=== PATIENT | male | born 1935 | race Caucasian/White ===

== ENCOUNTER 2017-01-09 00:09 | Emergency (ER) | payer MEDICARE, OTHER ==
[2017-01-09 00:47] LABS: BASOPHIL 0.2 % (0-2); HCT 43.9 % (42.0-52.0); HGB 14.9 g/dl (13.2-18.0); LYMPHOCYTE 34.3 % (15-48); MCH 32.7 pg (25.0-31.0); MCHC 33.9 g/dL (32.0-36.0); MCV 96.5 fL (78.0-100.0); MONOCYTE 10.2 % (0-12); MPV 9.1 fL (6.0-9.5); NEUTROPHIL 53.3 % (41-80); PLT 146 K/uL (150-400); RBC 4.55 M/uL (4.70-6.00); RDW 13.2 % (11.5-14.0)
[2017-01-09 00:57] LABS: ALBUMIN 3.8 g/dL (3.4-4.8); BILIRUBIN - TOTAL 0.3 mg/dL (0.1-1.0); CREATININE 0.9 mg/dL (0.7-1.2); GLOBULIN (CALCULATION) 3.1 g/dL (2.2-4.2); POTASSIUM 4.2 mmol/L (3.5-5.1); TOTAL PROTEIN 6.9 g/dL (6.4-8.3)
== END 2017-01-09 02:05 | disposition home or self-care (01) ==
LOC: FER 00:09
PROVIDERS: Emergency Medicine
DX: R20.2 Paresthesia of skin (principal); I25.10 Atherosclerotic heart disease of native coronary artery without angina pectoris; Z90.49 Acquired absence of other specified parts of digestive tract; Z98.890 Other specified postprocedural states
CPT/HCPCS: 36415; 70450; 80053; 84484; 85025; 93005

== ENCOUNTER 2020-10-27 05:09 | Emergency (ER) | payer MEDICARE, OTHER ==
[~2020-10-27 05:09] MED LIST: AZITHROMYCIN250 MG PO; NORCO 5-325 TA1 EACH PO
[2020-10-27 05:48] LABS: BASOPHIL 0.3 % (0-2); EOSINOPHIL 0.6 % (0-7); HCT 42.7 % (42.0-52.0); HGB 14.2 g/dl (13.2-18.0); LYMPHOCYTE 31.8 % (15-48); MCH 32.9 pg (25.0-31.0); MCHC 33.3 g/dL (32.0-36.0); MCV 99.1 fL (78.0-100.0); MONOCYTE 9.3 % (0-12); MPV 9.4 fL (6.0-9.5); NEUTROPHIL 57.7 % (41-80); NRBC 0; PLT 161 K/uL (150-400); RBC 4.31 M/uL (4.70-6.00); RDW 12.9 % (11.5-14.0); WBC 6.6 K/uL (4.0-10.5)
[2020-10-27 05:50] LABS: INR 2.37 (0.9-1.2); PROTHROMBIN TIME 24.7 SECONDS (11.4-13.6)
[2020-10-27 06:05] LABS: ALBUMIN 3.8 g/dL (3.4-5.0); BILIRUBIN - TOTAL 0.4 mg/dL (0.2-1.0); BUN/CREAT RATIO (CALC) 23.4 RATIO; CREATININE 1.07 mg/dL (0.67-1.17); GLOBULIN (CALCULATION) 3.4 g/dL; TOTAL PROTEIN 7.2 g/dL (6.4-8.2)
[2020-10-27] MEDS ORDERED: NITROQUIK SL0.4 MG SL (06:16)
== END 2020-10-27 06:25 | disposition home or self-care (01) ==
LOC: FER 05:09
PROVIDERS: Emergency Medicine
DX: I25.118 Atherosclerotic heart disease of native coronary artery with other forms of angina pectoris (principal); I48.91 Unspecified atrial fibrillation; J44.9 Chronic obstructive pulmonary disease, unspecified; Z95.1 Presence of aortocoronary bypass graft; Z79.899 Other long term (current) drug therapy
CPT/HCPCS: 36415; 71045; 80053; 84484; 85025; 85610; 85730; 93005

== ENCOUNTER 2021-07-27 01:17 | Emergency (ER) | payer MEDICARE, OTHER ==
[~2021-07-27 01:17] MED LIST changes: +NITROQUIK SL0.4 MG SL
[2021-07-27 01:51] LABS: BASOPHIL 0.4 % (0-2); EOSINOPHIL 0.8 % (0-7); HCT 43.9 % (42.0-52.0); HGB 14.7 g/dl (13.2-18.0); LYMPHOCYTE 27.4 % (15-48); MCH 33.9 pg (25.0-31.0); MCHC 33.5 g/dL (32.0-36.0); MCV 101.2 fL (78.0-100.0); MONOCYTE 8.8 % (0-12); MPV 8.6 fL (6.0-9.5); NEUTROPHIL 62.2 % (41-80); NRBC 0; PLT 160 K/uL (150-400); RBC 4.34 M/uL (4.70-6.00); WBC 5.3 K/uL (4.0-10.5)
[2021-07-27 02:03] LABS: INR 2.09 (0.9-1.2); PROTHROMBIN TIME 22.6 SECONDS (11.8-13.4)
[2021-07-27 02:16] LABS: ALBUMIN 3.7 g/dL (3.4-5.0); BILIRUBIN - TOTAL 0.6 mg/dL (0.2-1.0); BUN/CREAT RATIO (CALC) 18.4 RATIO; CREATININE 1.14 mg/dL (0.67-1.17); GLOBULIN (CALCULATION) 3.1 g/dL; POTASSIUM 4.2 mmol/L (3.5-5.1); TOTAL PROTEIN 6.8 g/dL (6.4-8.2)
[2021-07-27 02:39] LABS: CORONAVIRUS 2019 SARS-COV-2 NEGATIVE (NEGATIVE); INFLUENZA A NAA NEGATIVE (NEGATIVE)
[2021-07-27] MEDS ORDERED: PREDNISONE 20MG20 MG PO (03:49)
== END 2021-07-27 05:14 | disposition home or self-care (01) ==
LOC: FER 01:17
PROVIDERS: Internal Medicine
DX: J44.1 Chronic obstructive pulmonary disease with (acute) exacerbation (principal); E86.0 Dehydration; Z88.6 Allergy status to analgesic agent; Z20.822 Contact with and (suspected) exposure to COVID-19
CPT/HCPCS: 36415; 71045; 71275; 80053; 83690; 83880; 84145; 84484; 85025; 85379; 85610; 85730; 93005; 94640; J2930; J7040; Q9967; U0002

== ENCOUNTER 2021-09-16 12:26 | Emergency (ER) | payer MEDICARE, OTHER ==
[~2021-09-16 12:26] MED LIST changes: +PREDNISONE 20MG20 MG PO
[2021-09-16 13:14] LABS: BASOPHIL 0.3 % (0-2); HGB 13.6 g/dl (13.2-18.0); LYMPHOCYTE 21.4 % (15-48); MCH 34.1 pg (25.0-31.0); MCHC 33.2 g/dL (32.0-36.0); MCV 102.8 fL (78.0-100.0); MONOCYTE 8.3 % (0-12); MPV 8.9 fL (6.0-9.5); NEUTROPHIL 68.8 % (41-80); NRBC 0; PLT 135 K/uL (150-400); RBC 3.99 M/uL (4.70-6.00); RDW 12.8 % (11.5-14.0); WBC 5.9 K/uL (4.0-10.5)
[2021-09-16 14:11] LABS: ALBUMIN 3.4 g/dL (3.4-5.0); BILIRUBIN - TOTAL 0.4 mg/dL (0.2-1.0); CREATININE 1.22 mg/dL (0.67-1.17); GLOBULIN (CALCULATION) 3.3 g/dL; POTASSIUM 4.2 mmol/L (3.5-5.1); TOTAL PROTEIN 6.7 g/dL (6.4-8.2)
[2021-09-16 14:16] LABS: LACTIC ACID 0.7 mmol/L (0.4-1.9)
[2021-09-16 14:27] LABS: BILIRUBIN NEGATIVE (NEGATIVE); BLOOD NEGATIVE Ery/uL (NEGATIVE); CLARITY CLEAR (CLEAR); COLOR YELLOW (YELLOW); GLUCOSE (U) NORMAL (NORMAL); LEUKOCYTES NEGATIVE Leu/uL (NEGATIVE); NITRITE NEGATIVE (NEGATIVE); PROTEIN NEGATIVE (NEGATIVE); SPECIFIC GRAVITY 1.015 (1.001-1.030); UROBILINOGEN 0.2 mg/dL (0.2-1.0); pH 6.5 (5.0-9.0)
== END 2021-09-16 15:42 | disposition home or self-care (01) ==
LOC: FER 12:26
PROVIDERS: Nurse Practitioner Family
DX: R55 Syncope and collapse (principal); Z88.6 Allergy status to analgesic agent
CPT/HCPCS: 36415; 70450; 71045; 80053; 81003; 83605; 84145; 84484; 85025; 87040; 93005; J7030